=== PATIENT | male | born 1950 | race Caucasian/White ===

== ENCOUNTER 2017-04-06 10:59 | Emergency (ER) | payer MEDICARE, BC ==
[2017-04-06] MEDS ORDERED: ONDANSETRON ODT 4 MG TABLET TL STA (12:12)
[2017-04-06] MEDS ORDERED: DEXAMETHASONE 10 MG/ML VIAL PO STA (12:12)
[2017-04-06] MEDS ORDERED: HYDROmorphone 1 MG/ML SYRINGE IM STA (12:12)
[2017-04-06] MEDS ORDERED: HYDROmorphone 1 MG/ML SYRINGE ONE (12:19)
[2017-04-06] MEDS ORDERED: DEXAMETHASONE 10 MG/ML VIAL ONE (12:20)
[2017-04-06] MEDS ORDERED: CHERRY SYRUP 10 ML UDC PO ONE (12:20)
[2017-04-06] MEDS ORDERED: ONDANSETRON ODT 4 MG TABLET ONE (12:20)
--- NOTE | 2017-04-06 12:23 | ED Physician Documentation ---
PD HPI BACK PAIN - Stated complaint Stated Complaint: BACK PX - Chief complaint Chief Complaint: Back Pain - History obtained from History obtained from: Patient, Family - History of Present Illness Timing - onset: How many weeks ago (2) Timing - duration: Weeks (2) Timing - details: Gradual onset, Still present, Waxing and waning Location: Lower, Left Quality: Pain, Spasm, Sharp, Similar to prior episodes Associated symptoms: No: Fever, Weakness, Numbness, Incontinent of urine, Unable to urinate, Hematuria, Incontinent of stool Improves with: Rest, Position, Meds Worsened by: Movement Contributing factors: Other (recent travel) Similar symptoms before: Diagnosis (sciatica and DJD/disc disease) Recently seen: Not recently seen - Additional information Additional information: 67-year-old male with a history of spinal arthritis has developed acute left- sided sciatic symptoms with pain radiating down to the knee and numbness in the anterior calf as well as some weakness to the leg. He has had the symptoms previously not usually as bad as this and he has had previous MRI and epidural steroid injections. He is visiting here from [place] and does not have his pain medications with him. He was expecting this pain to improve and this is worse than normal for him. Review of Systems Constitutional: denies: Fever Ears: denies: Ear pain Nose: denies: Congestion Respiratory: denies: Cough GI: denies: Abdominal Pain, Nausea, Vomiting : denies: Dysuria Skin: denies: Rash Musculoskeletal: reports: Back pain, Extremity pain. denies: Neck pain Neurologic: reports: Numbness. denies: Generalized weakness, Focal weakness PD PAST MEDICAL HISTORY - Past Medical History Cardiovascular: Hypertension Musculoskeletal: Osteoarthritis Other Past Medical History: Lymphoma - Past Surgical History Past Surgical History: Yes Ortho: ACL reconstruction - Present Medications Home Medications: Ambulatory Orders Medication Instructions Recorded Confirmed Cyclobenzaprine [Flexeril] 10 mg PO TID PRN #20 tablet 04/06/17 HYDROcod/ACETAM 5/325 [[place] 5/325] 1 - 2 ea PO Q6H PRN #15 tablet 04/06/17 Hydrocodone/Acetaminophen [Vicodin 04/06/17 5-300 mg Tablet] - Allergies Allergies/Adverse Reactions: Allergies Allergy/AdvReac Type Severity Reaction Status Date / Time No Known Drug Allergies Allergy Verified 04/06/17 11:13 - Social History Does the pt smoke?: No Smoking Status: Never smoker Does the pt drink ETOH?: Yes ETOH Use: Wine, Beer Does the pt have substance abuse?: No - Immunizations Immunizations are current?: Yes - POLST Patient has POLST: No PD ED PE NORMAL - Vitals Vital signs reviewed: Yes (hypertensive ) - General General: Alert and oriented X 3, No acute distress, Well developed/nourished, Other (Laying supine with the left hip flexed and the leg placed in the frog- leg position.) - HEENT HEENT: Atraumatic, PERRL - Respiratory Respiratory: No respiratory distress - Back Back: No CVA TTP, No spinal TTP, Other (There is paraspinous muscle tenderness to the left side at the L4 area. ) - Derm Derm: Normal color, Warm and dry, No rash - Extremities Extremities: No deformity, No edema - Neuro Neuro: No motor deficit, No sensory deficit - Psych Psych: Normal mood, Normal affect Results - Vitals Vitals: Vital Signs - 24 hr 04/06/17 11:11 Temperature 36.5 C Heart Rate 65 Respiratory 16 Rate Blood Pressure 152/76 H O2 Saturation 97 Oxygen O2 Source Room air PD MEDICAL DECISION MAKING - ED course Complexity details: considered differential, d/w patient, d/w family ED course: 67-year-old male visiting from [place] with acute sciatica is administered dexamethasone 10 mg orally and Dilaudid 1 mg as well as Zofran for TL. Departure - Departure Disposition: 01 Home, Self Care Clinical Impression: Sciatica Qualifiers: Laterality: left Qualified Code(s): M54.32 - Sciatica, left side Condition: Stable Instructions: ED Sciatica Follow-Up: Your, doctor [Other] Prescriptions: Cyclobenzaprine [Flexeril] 10 mg PO TID PRN #20 tablet PRN Reason: Spasms HYDROcod/ACETAM 5/325 [[place] 5/325] 1 - 2 ea PO Q6H PRN #15 tablet PRN Reason: Pain
[2017-04-06 12:58] VITALS: BP 129/71
== END 2017-04-06 12:53 | disposition home or self-care (01) ==
LOC: ED 10:59
DX: M54.42 Lumbago with sciatica, left side (principal); I10 Essential (primary) hypertension; M47.9 Spondylosis, unspecified; M19.90 Unspecified osteoarthritis, unspecified site; Z85.72 Personal history of non-Hodgkin lymphomas
CPT/HCPCS: 96372; 99283; A9270; J1170; Q0162